=== PATIENT | female | born 1940 | race Caucasian/White ===

== ENCOUNTER 2024-06-07 20:38 | Emergency (ER) | payer MEDICARE, SELFPAY ==
--- NOTE | 2024-06-07 20:40 | EKG_ITS ---
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: : 1940 Requested By: Segun Huntley Order Number: [id number] Reading MD: Segun Huntley Measurements Intervals [place] Rate: 89 P: WA: QRS: 77 QRSD: 109 T: -51 QT: 394 QTc: 481 Interpretive Statements ATRIAL FIBRILLATION INCOMPLETE RIGHT BUNDLE BRANCH BLOCK [90+ ms QRS DURATION, TERMINAL R IN V1/V2, 40+ ms S IN I/aVL/V4/V5/V6] ST DEVIATION AND MODERATE T-WAVE ABNORMALITY, CONSIDER INFERIOR ISCHEMIA [-0.1+ mV T WAVE IN II/aVF] Compared to ECG 08/19/2021 20:23:03 Incomplete right bundle-branch block now present Possible ischemia now present T-wave abnormality still present /store/S0/[id number].pdf
[2024-06-07 20:41] VITALS: PULSE 112; RESP 20; O2SAT 99; BMI 26.6
[2024-06-07 20:48] VITALS: BP 139/79; PULSE 102; RESP 18; TEMP 37.3; O2SAT 96
--- NOTE | 2024-06-07 20:58 | PC.NURSE ---
PATIENT BIBBA FROM HOME FOR GENERAL WEAKNESS AFTER GOING TO THE RESTROOM AND BEING UNABLE TO STAND FROM THE TOILET PER GRANDDAUGHTER. PT IS ALERT AND ORIENTED X 4. 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 NOW WAITING FOR RESULTS THAT WERE PLACED BY PROVIDER.
[2024-06-07 21:06] LABS: Collection Type, Urine Clean Catch
--- NOTE | 2024-06-07 21:08 | PD.EDADULT ---
ED General RME/HPI General Chief complaint: General Adult/Misc Complain Stated complaint: WEAKNESS Time Seen by Provider: 06/07/24 20:40 Arrival date/time: 06/07/24 20:38 CC: Weakness HPI patient presents to the ER via EMS report the patient called 911 after not being able to get up off the commode. Patient's history states she is typically not this week. Patient does not know what medications she is on. EMS report highly irregular heart rate with otherwise stable blood pressure. Patient denies chest pain shortness of breath or difficulty breathing. Related Data Home Medications ?Medication ?Instructions ?Recorded ?Confirmed ramipril 10 mg capsule 10 mg PO QDAY 09/11/17 09/11/17 sertraline 50 mg tablet 100 mg PO QDAY 09/11/17 08/19/21 simvastatin 10 mg tablet 10 mg PO QPM 09/11/17 09/11/17 alprazolam 0.5 mg tablet 0.5 mg PO BID 09/15/17 09/15/17 alprazolam 0.5 mg tablet (Xanax) 0.5 mg PO BID 08/19/21 08/19/21 apixaban 5 mg tablet (Eliquis) 5 mg 08/19/21 carvedilol 12.5 mg tablet 12.5 mg PO BID 08/19/21 08/19/21 hydrocodone 5 mg-acetaminophen 325 5 - 325 tab PO BID 08/19/21 08/19/21 mg tablet trazodone 100 mg PO QHSPRN PRN Sleep 08/19/21 08/19/21 Previous Rx's ?Medication ?Instructions ?Recorded aspirin 81 mg tablet,delayed 81 mg PO QDAY #14 tabs 09/19/17 release (Aspir-Low) Allergies Allergy/AdvReac Type Severity Reaction Status Date / Time No Known Allergies Allergy Verified 09/11/17 06:53 Review of Systems Review of Systems Narrative Review of Systems: GEN: No fever, no chills, no weight loss EYES: No discharge, no visual changes, no pain HEENT: No ear pain, no congestion, no sore throat PULM: No shortness of breath, no cough, no congestion CV: No chest pain, no dyspnea on exertion, no palpitations GI: No nausea, no vomiting, no diarrhea, no pain, no constipation : No frequency, no urgency, no dysuria MUSC/SKEL: No joint pain, no back pain SKIN: No rash PSYCH: No hallucinations, no depression HEME/LYMPH: No easy bleeding or bruising tendencies NEURO: + weakness, no headache Past Medical History Past Medical History NEUROLOGIC: Positive Cerebrovascular Accident; Negative Neurological Disorders CARDIAC: Positive Cardiac Disorders, Atrial Fibrillation, Hypercholesterolemia and Hypertension; Negative Congestive Heart Failure RESPIRATORY: Negative Chronic Obstructive Pulmonary Disease (COPD) GASTROINTESTINAL: Negative Gastrointestinal Disorders or Hepatitis GENITOURINARY: Negative Renal Disease REPRODUCTIVE: Negative Breast Cancer or Pelvic Inflammatory Disease MUSCULOSKELETAL: Negative Musculoskeletal Disorders ENDOCRINE: Negative Diabetes Mellitus Type 1 or Diabetes Mellitus Type 2 HEMATOLOGIC: Negative Blood Disorders OTHER HISTORY: Positive Chicken Pox, Measles and Mumps; Negative Autoimmune Disease, Anesthesia Reactions, Organ Transplant, MRSA or Breast Cancer Family History FAMILY HISTORY: Positive Family Cardiac Disorders; Negative Family Cancer, Family Surgery or Family Anesthesia Reaction Surgical History SURGICAL: Positive Joint Replacement; Negative Endocrine Surgery, Abdominal Surgery, Nephrectomy, Neurologic Surgery, Mastectomy or Organ Transplant Social History SMOKING STATUS: Never smoker SUBSTANCE USE: does not use ED Exam Narrative Physical exam: [General: Somewhat ill kempt, does not appear in any acute distress Head normocephalic HEENT: Within acceptable limits Neck is supple nontender Chest equal chest rise nontender to palpation Respiratory: Clear to auscultation no wheezes crackles or rubs CV: Rate rhythm is irregular no murmurs rubs or clicks Abdomen is soft nontender no masses positive bowel sounds all 4 quadrants Back: No CVA tenderness no spinous process tenderness from cervical spine thoracic and lumbar spine Skin: Intact no petechiae rash induration ulceration or crepitus Extremities: Moving all extremity against resistance cap refill less than 2 seconds neurosensory intact. No lower extremity edema Neuro: Awake alert oriented x2, person place Glascow coma 15 no focal deficits] Course Quality Measures none Orders Category Date Time Status EKG (ED ONLY) *Do not use* NOW Care 06/07/24 20:40 Completed EKG (ED Only) Stat Exams 06/07/24 20:40 Draft B-Type Natriuretic Peptide Stat Lab 06/07/24 20:45 Completed CBC Stat Lab 06/07/24 20:45 Completed Comprehensive Metabolic Panel Stat Lab 06/07/24 20:45 Completed Drug Screen,Urine Stat Lab 06/07/24 20:55 Completed LDH (Lactate Dehydrogenase) Stat Lab 06/07/24 20:45 Completed Magnesium Stat Lab 06/07/24 20:45 Completed Partial Thromboplastin Time Stat Lab 06/07/24 20:45 Completed Prothrombin Time with INR Stat Lab 06/07/24 20:45 Completed Troponin I Stat Lab 06/07/24 20:45 Completed Urinalysis Stat Lab 06/07/24 20:55 Completed Furosemide [Lasix Inj] Med 06/07/24 21:48 Discontinued 20 mg IVP X1 ONE cloNIDine HCL [Catapres] Med 06/07/24 22:48 Once 0.1 mg PO X1 ONE Vital Signs Vital signs: Vital Signs Temperature 99.2 F 06/07/24 20:48 Pulse Rate 102 H 06/07/24 20:48 Respiratory Rate 18 06/07/24 20:48 Blood Pressure 139/79 H 06/07/24 20:48 Pulse Oximetry (%) 96 06/07/24 20:48 Oxygen Delivery Method Room Air 06/07/24 20:48 [facility] Patient data External records reviewed:: [facility] previous records and EMS form Clinical information provided by:: patient and EMS Social determinants that could affect healthcare access:: none Patient has the following chronic illnesses:: A-fib How is presenting disease/condition affected by chronic disease/condition?: uneffected by Evaluation data The following diagnostics were reviewed and interpreted by me:: lab results, radiology exam(s) and EKG tracing(s) Lab and/or radiology exams considered but not ordered:: EKG performed at 2102 shows ventricular rate of 89 QRS of 109 QTc of 441 this is A-fib right bundle branch block. When compared to an old EKG of 2018 there are no significant changes. CBC shows no acute leukocytosis anemia thrombocytopenia CMP shows no acute electrolyte imbalances renal Suzanne transaminitis or T. bili elevation Troponin is negative BNP is elevated at 548 Urine is negative Interpretation Summary: I will diurese the patient by giving her 20 of Lasix. The patient diuresed approximately 350 cc, blood pressure increased given her 0.1 of clonidine. Patient will be discharged home Medications Medications considered but not ordered:: None Medication administrations:: Medication Administration History Discontinued Medications Furosemide (Furosemide Inj 10 Mg/Ml Vial 2 Ml) 20 mg IVP X1 ONE Stop: 06/07/24 21:49 Last Admin: 06/07/24 21:56 Dose: 20 mg Documented By: CB None Consultations Consultation(s) initiated? (list below): No Diagnosis Differential Diagnosis ED Complaint MDM: Weakness electrolyte imbalances anemia UTI Most likely diagnosis given after review of the tests above:: Weakness Admission Indicated Admission indicated?: not indicated Explain why admission is indicated or not indicated:: Stable for outpatient follow-up Admission Request Was there a request for admission?: No Disposition Plan Disposition Plan: Discharge Discharge Attestation Discharge Attestation: The patient and all family members were given an opportunity to ask questions and understood the discharge instructions. Discharge instructions specifically effects, indications for sooner follow up or return to the emergency department, and the expected course of current diagnosis. Patient condition: Stable Medical Decision Making Differential Diagnosis Differential Diagnosis: Weakness electrolyte imbalances anemia UTI Lab Data 06/07/24 20:45 06/07/24 20:45 Labs: Lab Results 06/07/24 06/07/24 Range/Units 20:45 20:55 WBC 6.6 (3.6-11.0) Thou/mm3 RBC 5.05 (4.00-5.20) Miln/mm3 Hgb 13.6 (12.0-16.0) g/dL Hct 41.6 (36.0-46.0) % MCV 82 (80-100) fL MCH 26.9 (25.0-35.0) pg MCHC 32.7 (31.0-37.0) g/dl RDW Std Deviation 42.6 (36.4-46.3) fL Plt Count 265 (140-440) Thou/mm3 Neut % (Auto) 68 (37-80) % Lymph % (Auto) 22 (10-50) % [place] % (Auto) 7 (0-12) % Eos % (Auto) 1 (0-10) % Baso % (Auto) 1 (0-2.5) % Neut # (Auto) 4.5 (1.8-7.7) Thou/mm3 Lymph # (Auto) 1.5 (1.0-4.8) Thou/mm3 [place] # (Auto) 0.5 (0.0-0.8) Thou/mm3 Eos # (Auto) 0.1 (0.0-0.5) Thou/mm3 Baso # (Auto) 0.1 (0.0-0.2) Thou/mm3 Immature Gran # (Auto) 0.02 H (0.00-0.00) Thou/mm3 Absolute Nucleated RBC 0.00 (0.00-0.00) Thou/mm3 Immature Gran % 0 (0-0) % Nucleated RBC % 0 (0) /100 WBC PT 12.8 H (9.0-12.2) Seconds INR 1.2 (0.9-1.3) APTT 28.3 (22.0-36.0) Seconds Sodium 140 (136-145) mMol/L Potassium 3.2 L (3.4-5.1) mMol/L Chloride 105 (98-107) mMol/L Carbon Dioxide 27.5 (20.0-31.0) mMol/L Anion Gap 8 (7-16) BUN 10 (9-23) mg/dL Creatinine 0.9 (0.6-1.3) mg/dL Estim Creat Clear Calc 54.1 L (>60) mL/min eGFR > 60 (60 - ) See Note BUN/Creatinine Ratio 11 L (12-20) Ratio Glucose 137 H (74-106) mg/dL Calculated Osmolality 280 (275-295) Calcium 9.2 (8.3-10.6) mg/dL Corrected Calcium 9.4 (8.5-10.1) mg/dL Magnesium 2.0 (1.6-2.6) mg/dL Total Bilirubin 0.6 (0.3-1.2) mg/dL AST 14 (0-34) U/L ALT < 7 L (10-49) U/L Alkaline Phosphatase 60 (46-116) U/L Lactate Dehydrogenase 244 (120-246) U/L Troponin I < 0.020 (0.0-0.045) ng/mL B-Natriuretic Peptide 593 H* (0-100) pg/mL Total Protein 6.5 (5.7-8.2) gm/dL Albumin 3.8 (3.4-4.8) gm/dL Globulin 2.7 (2.3-3.5) gm/dL Albumin/Globulin Ratio 1.4 (1.2-2.2) Ur Collection Type Clean Catch Urine Color Lt-Yellow (Lt Yel-Yel) Urine Clarity Clear (Clear/Hazy) Urine pH 6.5 (5.0-7.0) Ur Specific [place] 1.006 (1.001-1.035) Urine Protein Negative (Neg - Trace) Urine Glucose (UA) Negative (Negative) Urine Ketones Negative (Negative) Urine Blood Negative (Negative) Urine Nitrite Negative (Negative) Urine Bilirubin Negative (Negative) Urine Urobilinogen (Auto) Negative (0.0-1.0) mg/dL Ur Leukocyte Esterase Negative (Negative) Urine RBC < 1 (0-3) /hpf Urine WBC < 1 (0-5) /hpf Ur Squamous Epith Cells < 1 (0-5) /hpf Urine Bacteria None (None) Urine Opiates Screen Negative (Negative) Urine Fentanyl Screen Negative (Negative) Ur Barbiturates Screen Negative (Negative) U Amphetamin/Meth Scrn Negative (Negative) U Benzodiazepines Scrn Positive A (Negative) U Cocaine Metab Screen Negative (Negative) U Marijuana (THC) Screen Negative (Negative) Discharge Plan Plan Patient Disposition: HOME (Self Care) Patient condition on transfer: Stable Prescriptions/Referrals Prescriptions/Med Rec: No Action simvastatin 10 mg Tablet 10 mg PO QPM sertraline 50 mg Tablet 100 mg PO QDAY ramipril 10 mg Capsule 10 mg PO QDAY alprazolam 0.5 mg Tablet 0.5 mg PO BID aspirin [Aspir-Low] 81 mg Tablet,Delayed Release (Dr/Ec) 81 mg PO QDAY Qty: 14 0RF trazodone 100 mg PO QHSPRN PRN (Reason: Sleep) carvedilol 12.5 mg tablet 12.5 mg PO BID hydrocodone-acetaminophen 5-325 mg tablet 5 - 325 tab PO BID alprazolam [Xanax] 0.5 mg Tablet 0.5 mg PO BID Eliquis 5 mg tablet 5 mg Problem List Clinical Impression: Weakness Patient/Caregiver Discharge Instructions Other Activity Instructions:: Follow-up with your doctor in the next 2 days with his worsening of symptoms return the emergency room for reevaluation. Education Materials: ED Weakness (Uncertain Cause) Print Language: Tuvaluan Stand Alone Forms: Angela Award Info., Patient Portal Info Letter, Work/School Release PA/DOUBLE END TENONER OPERATOR Supervising Physician PA/DOUBLE END TENONER OPERATOR Supervising Physician: Sgeun Reddy ENP
[2024-06-07 21:09] LABS: Basophils # (Auto) 0.1 Thou/mm3 (0.0-0.2); Basophils % (Auto) 1 % (0-2.5); Eosinophils # (Auto) 0.1 Thou/mm3 (0.0-0.5); Eosinophils % (Auto) 1 % (0-10); Hematocrit 41.6 % (36.0-46.0); Hemoglobin 13.6 g/dL (12.0-16.0); Immature Granulocytes % (Auto) 0 % (0-0); Immature Granulocytes Auto 0.02 Thou/mm3 (0.00-0.00); Lymphocytes # (Auto) 1.5 Thou/mm3 (1.0-4.8); Lymphocytes % (Auto) 22 % (10-50); Mean Corpuscular HGB Conc 32.7 g/dl (31.0-37.0); Mean Corpuscular Hemoglobin 26.9 pg (25.0-35.0); Mean Corpuscular Volume 82 fL (80-100); Monocytes # (Auto) 0.5 Thou/mm3 (0.0-0.8); Monocytes % (Auto) 7 % (0-12); Neutrophils # (Auto) 4.5 Thou/mm3 (1.8-7.7); Neutrophils % (Auto) 68 % (37-80); Nucleated Red Blood Cell % 0 /100 WBC (0); Platelet Count 265 Thou/mm3 (140-440); RDW Standard Deviation 42.6 fL (36.4-46.3); Red Blood Count 5.05 Miln/mm3 (4.00-5.20); White Blood Count 6.6 Thou/mm3 (3.6-11.0)
[2024-06-07 21:13] LABS: Bilirubin,Urine Negative (Negative); Blood,Urine Negative (Negative); Clarity,Urine Clear (Clear/Hazy); Color,Urine Lt-Yellow (Lt Yel-Yel); Glucose, Urine Negative (Negative); Ketones,Urine Negative (Negative); Leukocyte Esterase,Urine Negative (Negative); Nitrite,Urine Negative (Negative); PH,Urine 6.5 (5.0-7.0); Protein,Urine Negative (Neg - Trace); RBC,Urine < 1 /hpf (0-3); Specific Gravity,Urine 1.006 (1.001-1.035); Squamous Epithelial Cell,Urine < 1 /hpf (0-5); Urobilinogen,Urine Negative mg/dL (0.0-1.0); WBC,Urine < 1 /hpf (0-5)
[2024-06-07 21:26] LABS: INR 1.2 (0.9-1.3); Partial Thromboplastin Time 28.3 Seconds (22.0-36.0); Prothrombin Time 12.8 Seconds (9.0-12.2)
[2024-06-07 21:39] LABS: Anion Gap 8 (7-16); B-Type Natriuretic Peptide 593 pg/mL (0-100); Blood Urea Nitrogen 10 mg/dL (9-23); Carbon Dioxide 27.5 mMol/L (20.0-31.0); Chloride 105 mMol/L (98-107); Creatinine (Component) 0.9 mg/dL (0.6-1.3); Potassium 3.2 mMol/L (3.4-5.1); Sodium 140 mMol/L (136-145)
[2024-06-07 21:40] LABS: Alanine Aminotransferase < 7 U/L (10-49); Albumin, Serum 3.8 gm/dL (3.4-4.8); Albumin/Globulin Ratio 1.4 (1.2-2.2); Alkaline Phosphatase 60 U/L (46-116); Aspartate Amino Transferase 14 U/L (0-34); BUN/Creatinine Ratio 11 Ratio (12-20); Bilirubin,Total 0.6 mg/dL (0.3-1.2); Calcium 9.2 mg/dL (8.3-10.6); Calcium (Corrected) 9.4 mg/dL (8.5-10.1); Estimated Creatinine Clearance 54.1 mL/min (>60); Globulin 2.7 gm/dL (2.3-3.5); Glucose 137 mg/dL (74-106); Osmolality,Calculated 280 (275-295); Total Protein 6.5 gm/dL (5.7-8.2); Troponin I < 0.020 ng/mL (0.0-0.045); eGFR > 60 See Note
[2024-06-07 21:40] LABS: Amphetamine/Methamp Scrn,U Negative (Negative); Barbiturate Screen,Urine Negative (Negative); Benzodiazepines Screen,Urine Positive (Negative); Benzoylecgonine Screen, Ur Negative (Negative); Fentanyl Screen,Urine Negative (Negative); Opiate Screen,Urine Negative (Negative); THC Screen,Urine Negative (Negative)
[2024-06-07 21:56] VITALS: BP 140/92; PULSE 92
[2024-06-07] MEDS: FUROSEMIDE INJ 10 MG/ML VIAL 2 ML 20 MG IVP (21:56)
[2024-06-07 21:58] LABS: LDH (Lactate Dehydrogenase) 244 U/L (120-246)
[2024-06-07 22:48] VITALS: BP 149/113; PULSE 99; RESP 20; O2SAT 94
[2024-06-07 22:54] VITALS: BP 154/101; PULSE 99
[2024-06-07] MEDS: cloNIDine HCL 0.1 MG TABLET PO (22:54)
[2024-06-07 23:20] VITALS: BP 135/93; PULSE 98; RESP 20; O2SAT 94
== END 2024-06-07 23:35 | disposition home or self-care (01) ==
LOC: SERX 06-08 00:12
PROVIDERS: Registered Nurse General Practice; Emergency Provider Emergency Medicine; PCP Family Medicine
DX: R53.1 Weakness (principal); I48.91 Unspecified atrial fibrillation; I45.10 Unspecified right bundle-branch block
CPT/HCPCS: 36415; 80053; 80307; 81001; 83615; 83735; 83880; 84484; 85025; 85610; 85730; 93005; 96374; 99284; J1940; A9270